=== PATIENT | female | born 1990 | race Caucasian/White ===

== ENCOUNTER → 2021-12-14 | Day surgery (SDC) | payer OTHER ==
[~2021-12-14] VITALS: Ht 165.1 cm; Wt 70.8 kg
[~2021-12-14] MED LIST: IBUPROFEN800 M1 PO; PRENATAL FORMU1 EACH PO
[2021-12-14 12:17] LABS: HCG (URINE) SCREEN NEGATIVE (NEGATIVE)
== END | disposition home or self-care (01) ==
LOC: FAS 11:54
PROVIDERS: Obstetrics & Gynecology
DX: D06.0 Carcinoma in situ of endocervix (principal)
CPT/HCPCS: 84703; J1100; J1885; J2250; J2405; J2704; J3010; J7120